=== PATIENT | male | born 1970 | race Caucasian/White ===

== ENCOUNTER 2024-09-19 05:47 | Emergency (ER) | payer OTHER, SELFPAY ==
[2024-09-19 06:00] VITALS: BP 105/70
[2024-09-19 06:37] LABS: Hematocrit 44.2 % (39.0-52.0); Hemoglobin 14.9 g/dL (13.0-18.0); Mean Corp Hgb Conc. 33.7 g/dL (33.0-37.0); Mean Corpuscular Volume 83.7 fL (80.0-94.0); Nucleated Red Blood Cells % 0 % (-); Platelet Count 227 10^3/uL (130-400); Red Cell Dist. Width 12.9 % (11.5-14.5)
[2024-09-19 06:51] LABS: ALT (SGPT) 35 U/L (0-50); AST (SGOT) 57 U/L (17-59); Albumin 4.1 g/dl (3.5-5.0); Alkaline Phosphatase 78 U/L (38-126); Blood Urea Nitrogen 21 mg/dl (9-20); Calcium 8.4 mg/dl (8.4-10.2); Carbon Dioxide 23 mmol/L (22-30); Chloride 104 mmol/L (98-107); Glucose 176 mg/dl (70-99); Potassium 4.2 mmol/L (3.5-5.1); Sodium 137 mmol/L (135-145); Total Protein 6.9 g/dl (6.3-8.2); eGFR > 60.00
[2024-09-19 06:53] LABS: COVID-19 Antigen Negative (Negative)
[2024-09-19 08:08] VITALS: BMI 29.5
[2024-09-19 08:10] VITALS: BP 133/84
[2024-09-19] MEDS: NSS 1000 IV ×3 (08:41→13:37)
--- NOTE | 2024-09-19 09:06 | ED.GENMED ---
History of Present Illness
General
Chief Complaint: Fever
Source: patient
Exam Limitations: none
Time Seen by Provider: 09/19/24 08:04
History of Present Illness
History of Present Illness:
54-year-old male otherwise healthy presents with illness for 4 to 5 days. Illness started as a sore throat which seemed to resolve however then he developed teeth pain. Shortly after developing teeth discomfort he started vomiting. He was
vomiting and had diarrhea for about a day. Throughout this time his temperature was as high as 102.4. He saw an urgent care 2 days ago and was prescribed penicillin for his dental related pain. His dental related pain seems to have improved he
still notes diffuse myalgias fatigue and persistent fever. He denies rash or known tick bites. He again notes a slight sore throat more currently. He denies chest pain he does note occasional cough. No other complaint
Past History
Past History
ED Past Medical History: None and GERD
ED Past Surgical History: None
Social History
Tobacco: Non-smoker
Personal:
Living: with family
Phy Exam
Physical Exam
Physical Exam:
General: Well-appearing male no acute respiratory distress
HEENT: Normocephalic atraumatic no trismus or drooling neck is supple no erythema or exudate, no noted adenopathy
Heart: Regular rate and rhythm
Lungs: Clear no wheeze abdomen soft nontender
Musculoskeletal exam: Diffuse tenderness about the muscle groups of the abdomen arms and legs
Vascular: Compartments are soft in all extremities
Skin is warm without rash
Neurologic no meningeal signs
Sepsis
Sepsis Screening
Sepsis Assessment: Sepsis Ruled Out
Sepsis Screen
Sepsis Screen: Sepsis Ruled Out
Date: 09/19/24
Time: 14:32
Course
Orders/Labs/Results
Orders:
Orders
09/19/24 06:12
COVID-19 Antigen Urgent
Source: Nasal Swab
Complete Blood Count/With Diff Urgent
Comprehensive Metabolic Panel Urgent
Creatine Phosphokinase Urgent
Comment: ADD ON
Lactic Acid Urgent
Lyme Progressive Urgent
Comment: ADD ON
Monotest Urgent
Comment: ADD ON
09/19/24 08:23
CR Chest - 2 Views Urgent
Comment:
Reason For Exam: fever
09/19/24 08:26
Add On- LAB Urgent
Tests Added?: monotest, lyme progressive
0.9% Sodium Chloride 1000 ml [Nss] 1,000 ml IV BOLUS
09/19/24 08:29
Add On- LAB Urgent
Tests Added?: cpk
09/19/24 11:05
0.9% Sodium Chloride 1000 ml [Nss] 1,000 ml IV BOLUS
09/19/24 13:13
0.9% Sodium Chloride 1000 ml [Nss] 1,000 ml IV BOLUS
Ketorolac [Toradol] 15 mg IV NOW STA
Abnormal Lab Results
09/19/24
06:12
Absolute Monos (auto) 0.7 H 10^3/uL
(0.1-0.6)
BUN 21 H mg/dl
(9-20)
Creatinine 1.4 H mg/dL
(0.7-1.3)
Glucose 176 H mg/dl
(70-99)
Creatine Kinase 748 H U/L
(55-170)
09/19/24 06:12
09/19/24 06:12
Vital Signs
Initial and Last Documented VS:
Initial Vital Signs
Temp Pulse Resp BP Pulse Ox
98.3 F 60 24 105/70 97
09/19/24 06:00 09/19/24 06:00 09/19/24 06:00 09/19/24 06:00 09/19/24 06:00
Last Documented Vital Signs
Temp Pulse Resp BP Pulse Ox
98.2 F 84 22 133/84 99
09/19/24 08:10 09/19/24 08:10 09/19/24 08:10 09/19/24 08:10 09/19/24 09:08
MDM/Problems Addressed
Differential Diagnosis Includes:
Fever with vomiting and dental pain. Dental pain has since resolved. Fever persist vomiting is since resolved he still notes nausea. Concern for viral illness versus electrolyte abnormality rhabdomyolysis versus dehydration
Check labs including CPK COVID test chest x-ray Lyme and mono. Fluids ordered
*Pulse Oximetry
SaO2: 99
Oxygen Mode of Delivery: Room air
Patient hypoxic: no
*Critical Care Note
Total Time (30-74mins, 75-104mins- exclusive of procedures): Not Applicable
Update Note
Update Note:
Workup here essentially negative COVID-negative chest x-ray clear [place] negative Lyme is pending. CPK was slightly elevated at over 700. He is given 3 L of fluid eventually Toradol and is muscle aches improved. Suspect viral based myositis. He
should receive a call if his Lyme test is positive.
ED Attending Note
-
Portions of this chart may have been created with voice recognition software.� Occasional wrong word or��sound alike� substitutions may have occurred due to the inherent limitations of voice recognition software.
Discharge Plan
Departure
Patient Disposition: Home (Routine Discharge)
Date of Disposition: 09/19/24
Time of Disposition: 14:31
Patient with high blood pressure during this ER visit?: No
Discharge Problem:
Acute viral syndrome
Instructions: Viral Syndrome (DC)
Prescriptions:
No Action
hydrocodone-acetaminophen [[place]] 1 EACH tablet
1 ea PO Q6HPRN PRN (Reason: pain ) Qty: 12 0RF
Referrals:
Jen Freire CRNP [Family Provider]
Activity Restrictions/Additional Instructions:
Continue drinking plenty of fluids. Continue with Tylenol and ibuprofen for pain. You should receive a call if your Lyme test is positive
Interventions
Interventions:
*Risk Screen - Suicide Last Done: 09/19/24 06:00
*Neglect/Abuse Screening Last Done: 09/19/24 06:00
ED- Neurological Assessment Last Done: 09/19/24 08:13
ED-Skin Assessment Last Done: 09/19/24 08:13
Discharge Date and Time
Print Language: LAO
[2024-09-19] MEDS: TORADOL 15 MG IV (13:38)
[2024-09-21 14:16] LABS: Lyme Antibody Screen, EIA Negative (Negative)
== END 2024-09-19 14:54 | disposition home or self-care (01) ==
LOC: EMR 05:47
PROVIDERS: EMERGENCY PHYSICIAN Student in an Organized Health Care Education/Training Program; FAMILY PHYSICIAN Nurse Practitioner Family
DX: B34.9 Viral infection, unspecified (principal); K21.9 Gastro-esophageal reflux disease without esophagitis
CPT/HCPCS: 99284; 96374; 96361 ×3; 71046; 80053; 82550; 83605; 85025; 86308; 86618; 87811